=== PATIENT | male | born 2005 | race Caucasian/White ===

== ENCOUNTER 2024-04-14 14:34 | Emergency (ER) | payer OTHER, SELFPAY ==
[2024-04-14 14:41] VITALS: BP 134/79; PULSE 79; RESP 16; TEMP 37.1; O2SAT 100
--- NOTE | 2024-04-14 15:15 | ED.EAR ---
HPI - Ear Problem General Chief complaint: Ear Stated complaint: Ear bleeding History of Present Illness HPI Narrative: patient is a 18-year-old male, presents to [facility] with left ear canal bleeding after his mom attempted to remove cerumen from the left ear canal this morning. He denies any additional URI symptoms. he has not had diarrhea prior to today. He denies any additional complaints, his tetanus vaccination is reported up-to-date Related Data Allergies Allergy/AdvReac Type Severity Reaction Status Date / Time No Known Allergies Allergy Unverified 01/10/14 15:37 Review of Systems ENT: Comments: refer to HPI Exam Narrative: abrasion of the left ear canal is present, there is cerumen deep in the canal, there is no other traumatic injury appreciated, portion of the TM is visible is intact it does not appear infected. Plan to treat with Floxin otic drops, home cerumen removal instructions are provided for safe use in the future. PCP follow-up for ear check in 3 days stressed if symptoms are not resolving Const: General: healthy appearing and no acute distress Nutritional Appearance: well nourished Orientation/consciousness: patient oriented x3 Limitations: no limitations and altered mental status HENMT: Head: normal to inspection Ears: external ears normal ( patient's left EAC has an abrasion proximal to the opening. ) Face/Nose/Sinus: Normal external nose present Teeth and gingiva: dentition normal Throat: posterior oropharynx normal Other: There is cerumen deep in the canal, partially obstructing the view of the TM however the portion that is visible is intact right ear canal is unremarkable on exam Eyes: Pupils: Equal, round and reactive pupils present EOM: EOMs intact bilaterally Neck: Neck: normal visual inspection, no lymphadenopathy and no meningeal signs Resp: Effort & Inspection: normal respiratory effort Auscultation: clear to auscultation bilaterally Cardio: Rate: regular rate Rhythm: regular rhythm Skin: General skin exam: normal color Rashes: no rashes Neuro: General: patient oriented x3, moves all extremities, no meningeal signs, no focal motor deficits and CN's II-XI intact bilaterally Course Course Level of Care: Express Care Visit ([id number]) Vital Signs Vital signs: Vital Signs Temperature 37.1 C 04/14/24 14:41 Pulse Rate 79 04/14/24 14:41 Respiratory Rate 16 04/14/24 14:41 Blood Pressure 134/79 04/14/24 14:41 Pulse Oximetry 100 04/14/24 14:41 Oxygen Delivery Room Air 04/14/24 14:41 Temperature 37.1 C 04/14/24 14:41 Pulse Rate 79 04/14/24 14:41 Respiratory Rate 16 04/14/24 14:41 Blood Pressure 134/79 04/14/24 14:41 Pulse Oximetry 100 04/14/24 14:41 Oxygen Delivery Room Air 04/14/24 14:41 Medical Decision Making MDM Narrative Medical decision making narrative: Floxin otic Differential Diagnosis Differential Diagnosis: external ear canal abrasion, otitis media, cerumen impaction, otitis externa Vital Signs Vital Signs: Vital Signs Temperature 37.1 C 04/14/24 14:41 Pulse Rate 79 04/14/24 14:41 Respiratory Rate 16 04/14/24 14:41 Blood Pressure 134/79 04/14/24 14:41 Pulse Oximetry 100 04/14/24 14:41 Oxygen Delivery Room Air 04/14/24 14:41 Temperature 37.1 C 04/14/24 14:41 Pulse Rate 79 04/14/24 14:41 Respiratory Rate 16 04/14/24 14:41 Blood Pressure 134/79 04/14/24 14:41 Pulse Oximetry 100 04/14/24 14:41 Oxygen Delivery Room Air 04/14/24 14:41 Discharge Plan Discharge Clinical Impression: Abrasion of left ear canal Qualifiers: Encounter type: initial encounter Qualified Code(s): S00.412A - Abrasion of left ear, initial encounter Patient Disposition: Home, Self-Care Condition: Stable Instructions: Antibiotic Form, Earache (ED) Additional Instructions: use antibiotic ear drops as prescribed. Avoid inserting any objects, including Q
== END 2024-04-14 15:31 | disposition home or self-care (01) ==
PROVIDERS: Emergency Provider Nurse Practitioner Family
DX: S00.412A Abrasion of left ear, initial encounter (principal); X58.XXXA Exposure to other specified factors, initial encounter
CPT/HCPCS: 99203; G0463

== ENCOUNTER 2024-11-02 18:47 | Emergency (ER) | payer OTHER, SELFPAY ==
--- OUTSIDE RECORDS SUMMARY | 2024-11-02 18:50 | XMS_ITS | Data Portability ---
Author Organization [facility] [place] [facility] Address [address] [place] [address] Care Team Providers Care Electrophysiology Technician Name Role Phone RENITANANCYRHINA CRUZ Primary Care Provider Assessment No assessment recorded. Plan of Treatment Reminders Order Date Submit Date Provider Last Modified By Organization Details Last Modified Time Details Appointments None record ed. Lab HIV 1+2 AB + HIV 1 p24 Ag, qualit ative immuno assay, serum 2019 020 [facility], [address] [place] [address], [place], [address], 0 12:09:52 RPR (rapid plasma reagin ), serum 2019 020 [facility], [address] [place] [address] 2, [place], [address], 0 12:09:51 hsv (1+2) igg Ab, serum 2019 020 [facility], [address] [place] [address] 2, [place], [address], 0 12:09:52 HBsAg (hepat itis B surfac e Ag), EIA, serum 2019 020 [facility], [address] [place] [address] 2, [place], [address], 0 12:09:53 hepati tis C Ab, signal -to-cu toff, serum or plasma 2019 020 [facility], [address] [place] [address], [place], [address], 0 12:09:51 CT + NG RNA, PCR, unspec ified specim en 2019 020 [facility], [address] [place] [address] 2, [place], [address], 0 12:09:52 strept ococcu s group A Ag screen 2021 022 [facility] ([facility]) Registration/ Lab, [address] [place], [address], 2 16:00:17 strept ococcu s group A Ag screen 2021 022 [facility], [address] [place] [address] 2, [place], [address], 2 15:47:00 SARS CoV 2 RNA (COVID -19), QL, 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 Thank you. 2021 022 gerson De La Cruz MD, [address] [facility], [facility] - Timothy D, [facility] [place], [address], 2 08:56:42 Procedures None record ed. Surgeries None record ed. Imaging None record ed. Medication Orders Debrox 6.5 % ear drops 2019 020 [facility], [address] [facility], [place], [address], 2 15:28:31 albute rol sulfat e HFA 90 mcg/ac tuatio n aeroso l inhale r 2019 020 [facility], [address] [place] [address], [address], 0 12:12:13 doxycy galindo hyclat e 100 mg tablet 2021 022 [facility], [address] [place] [address], [address], 2 16:10:27 clinda mycin 1 % lotion 2021 022 [facility], [address] [place] [address], [address], 2 16:10:25 tretin oin 0.05 % topica l cream 2021 022 [facility], [address] [place] [address], [address], 2 16:10:26 Debrox 6.5 % ear drops 2021 022 [facility], [address] [place] [address], [address], 2 15:45:15 Patient TargetsNo targets recorded. Patient Instructions Encounter Date Encounter Id Patient Instructions Last Modified By Organization Details Last Modified Time 09/06/2020 [id number] Learning About H ow to Make Healthy Changes in Your Child's Diet avallala Not available 09/06/2020 11:46:59 Considering More Physical Activity for Your Child avallala Not available 09/06/2020 11:46:59 09/30/2021 [id number] Learning About H ow to Make Healthy Changes in Your Child's Diet avallala Not available 09/30/2021 17:59:59 Considering More Physical Activity for Your Child avallala Not available 09/30/2021 17:59:59 anticipatory guidance 16-17 years avallala Not available 09/30/2021 17:58:47 10/22/2021 [id number] sore throat in teens: care instructions avallala Not available 10/22/2021 15:46:45 12/16/2021 [id number] possible appendicitis in children: care instructions Not available 12/16/2021 15:09:26 Told mom to go t o [facility]. Mom expressed understanding My nurse Amalia Aguirre, RN called [facility] to give report. Not available 12/16/2021 15:09:26 Reason for Referral [facility] Referral for A cne Please call mom to set up appointment, Malia Amaral @ [phone]. Thank you. Referring Physician: Rhina Yoder, Pediatric Medicine, Encounter Date: 09/30/2021 Problems Name Problem SNOMED Code Status Onset Date Resolution Date Notes Provider Name and Address Organization Details Recorded Time Infestation by Sarcoptes scabiei ani hominis [id number] Completed 04/27/2019 Viraj kaba [place] - [place] 9 12:30:41 Migraine without aura 75810382 Active JONEL Miguel, [place] - [facility] 6 10:34:33 Feeling angry 68686549 Completed 04/27/2019 Viraj kaba [place] - [facility] 9 12:30:44 Mild intermitten t asthma 281838075 Active JONEL [place], [place] - [facility] 6 10:34:33 Severe myopia 44358584 Active JONEL Miguel, [place] - [facility] 6 10:34:33 Problem Notes None recorded. Procedures Surgical History Date Name Laterality Status Provider Name and Address Organization Details Recorded Time 4 Circumcision completed Katharina Pereira [place] - [place] 09/14/2015 15:22:11 Imaging Results None recorded. Procedure Notes None recorded. Medical Equipment None Reported. Allergies No known drug allergies Medications Name Sig Start Date Stop Date Status Note LastModified by Organization Details LastModified Time azithromyci n 250 mg tablet Take 2 tablets on day 1, then 1 tablet on days 2-5. 04/27 completed Not Available Not Available Not Available sumatriptan 25 mg tablet Take 1 tablet at onset of headache, if no improveme nt, can take another tablet 2 hours later. Do not take more than 3 doses/wk. 09/30 completed Not Available Not Available Not Available Debrox 6.5 % ear drops INSTILL 4 DROPS INTO AFFECTED EAR(S) TWICE DAILY FOR 4 DAYS active Not Available Not Available No t Available permethrin 5 % topical cream Apply by topical route to skin from neck down to toes hs, shower after 8-10hr, repeat in 1 wk. 11/27 completed Not Available Not Available Not Available tretinoin 0.05 % topical cream APPLY TO THE AFFECTED AREAS OF BODY AND FACE BY TOPICAL ROUTE ONCE DAILY AT BEDTIME, FIRST START WITH PEA SIZED AMOUNT TO AREA AND USE EVERY OTHER DAY FOR 1 WEEK, THEN EVERY DAY AT BEDTIME active Not Available Not Available No t Available Zantac 75 mg tablet Take 1 tablet twice a day by oral route for 30 days. 04/27 completed Not Available Not Available Not Available triamcinolo ne acetonide 0.025 % topical cream Apply by topical route.to red rash 2x daily for 7ds then every other day for 2wk, stop when rash is flat 11/27 completed Not Available Not Available Not Available amitriptyli ne 10 mg tablet 09/30 completed Not Available Not Available Not Available oseltamivir 75 mg capsule Take 1 capsule twice a day by oral route for 5 days. 04/27 completed Not Available Not Available Not Available ibuprofen 400 mg tablet 04/27 completed Not Available Not Available Not Available albuterol sulfate HFA 90 mcg/actuati on aerosol inhaler Inhale 2 puffs every 4 hours by inhalatio n route. 2019 active Not Available Not Available Not Avai lable doxycycline hyclate 100 mg tablet TAKE 1 TABLET BY MOUTH TWICE DAILY active Not Available Not Available No t Available amoxicillin 500 mg-potassiu m clavulanate 125 mg tablet active Not Available Not Available Not Available clindamycin 1 % lotion APPLY A THIN LAYER TO THE AFFECTED AREA(S) OF BODY AND FACE ONCE A DAY IN THE MORNING active Not Available Not Available No t Available Vitals Date Recorded Body height Body mass index (BMI) Percentile per age and sex Body mass index (BMI) Body weight Heart rate Respiratory rate Body temperature Systolic blood pressure Diastolic blood pressure Provider Name and Address Organization Details Last Updated DateTime 0 181.61 cm 51 % 20.6 kg/m2 16622.0 6 g 80 /min 20 /min 98.1 [degF] 108 mm[Hg] 64 mm[Hg] Mary Ellen baca MA [facility] 0 11:40:28 Date Recorded Heart rate Respiratory rate Body temperature Body height Body mass index (BMI) Percentile per age and sex Body mass index (BMI) Body weight Systolic blood pressure Diastolic blood pressure Provider Name and Address Organization Details Last Updated DateTime 2 76 /min 16 /min 98.5 [degF] 181.61 cm 21 % 19.3 kg/m2 62363.7 3 g 112 mm[Hg] 64 mm[Hg] Mray Ellen baca MA [facility] 2 15:31:44 Date Recorded Heart rate Respiratory rate Body temperature Body height Body mass index (BMI) Body mass index (BMI) Percentile per age and sex Body weight Systolic blood pressure Diastolic blood pressure Provider Name and Address Organization Details Last Updated DateTime 2 80 /min 16 /min 98.4 [degF] 181.61 cm 19.3 kg/m2 20 % 13519.9 3 g 112 mm[Hg] 64 mm[Hg] Mary Ellen baca MA [facility] 2 14:45:23 Date Recorded Heart rate Respiratory rate Body temperature Body height Body mass index (BMI) Body mass index (BMI) Percentile per age and sex Body weight Systolic blood pressure Diastolic blood pressure Provider Name and Address Organization Details Last Updated DateTime 2 80 /min 16 /min 98.2 [degF] 181.61 cm 18.1 kg/m2 7 % 88866.4 g 110 mm[Hg] 62 mm[Hg] Mary Ellen baca MA [facility] 2 14:52:23 Social History Question Answer Notes LastModified by Organizat ion Details LastModified Time Tobacco Smoking Status Never Smoker Katharina Pereira MA [facility], [facility] 09/13/2014 11:23:06 Do You Wear A Helmet When Biking? No Information not available 09/13/2014 Are You Or Have You Been Involved With Bullying? Yes [email or web address] Information not available 09/13/2014 What Is Your Level Of Caffeine Consumption? Moderate [email or web address] Information not available 09/13/2014 What Type Of [facility] Assisted Living Do You Use? None Information not available 09/30/2021 What Type Of Diet Are You Following? REGULAR Not Good On Veggies [email or web address] Information not available 09/13/2014 What Is The Highest Grade Or Level Of School You Have Completed Or The Highest Degree You Have Received? [id number] [email or web address] Information not available 09/30/2021 Have There Been Any Changes To Your Family Or Social Situation? Yes Brother Recently From Brain Cancer [email or web address] Information not available 04/17/2016 What Is The Fluoride Status Of Your Home? Fluoridated Information not available 11/27/2016 Are There Any Guns Present In Your Home? No [email or web address] Information not available 09/13/2014 What Is Your Home Situation? Mother Mom, Stepdad, And Sister [email or web address] Information not available 09/13/2014 Do You Use Insect Repellent Routinely? Yes Information not available 09/13/2014 Car Seat Type Or Seat Belt? Seat Belt [email or web address] Information not available 09/13/2014 Parent Involvement? Both Parents Involved Dad [email or web address] Information not available 09/13/2014 Riding In Car Front Seat? Yes Most Of Time In Back [email or web address] Information not available 09/13/2014 What Was The Date Of Your Most Recent Tobacco Screening? 11/11/2018 Information not available 04/21/2019 What Is Your Parents' Marital Status? Unmarried [email or web address] Information not available 09/13/2014 What Is The Name Of Your School? [email or web address] [id number] Information not available 09/30/2021 Do You Have Any Siblings? 1 Brother, 1/2 Sister [email or web address] Information not available 09/13/2014 Do You Have Smoke And Carbon Monoxide Detectors In Your Home? Yes [email or web address] Information not available 09/13/2014 Are You Passively Exposed To Smoke? No [email or web address] Information not available 09/13/2014 What Types Of Sporting Activities Do You Participate In? Football Information not available 09/06/2020 Do You Use Sunscreen Routinely? Yes [email or web address] Information not available 09/13/2014 Are You Currently In School? Yes Information not available 09/30/2021 Sex: Male Functional Status Question Answer Note LastModified by Organization D etails LastModified Time What is your exercise level? Moderate [email or web address] Information not available 09/13/2014 Mental Status None recorded. Family History Relationship Description Onset Age of this Age Resolved Age Notes LastModified by Organization Details LastModified Time Maternal Grandfather Hypertensive disorder [email or web address] Not available 08/28 15:22:11 Brother Family history of malignant neoplasm 10 Not available 10/2016 15:33:37 Medical History Condition Response Blood Diseases N Depression N Premature N Anxiety Disorder N Muscle, Joint, or Bone Problems N Vision or Eye Problems N Cancer N Headaches N Ear or Hearing Problems N Skin Problems N Constipation N Asthma Y Allergies N Chicken Pox N Autism Spectrum Disorder (ASD) N Developmental or Behavioral Disorders N Head Injury/Concussion N ADHD N Bladder or Kidney Problems N Thyroid Problems N Anemia N Diabetes N Bedwetting N Heart Problems/Murmur N Seizures/Epilepsy N Immunizations Vaccine Type Date Status Note Provider Nam e and Address Organization Details Recorded Time influenza, unspecified formulation 0 completed Not Available [facility] 12/16/2021 21:47:42 influenza, unspecified formulation 1 completed [facility] Available [facility] 12/16/2021 21:47:43 MMR 5 completed Not Available [facility] 12/16/2021 21:47:43 DTaP 6 completed Not Available [facility] 12/16/2021 21:47:42 influenza, unspecified formulation 5 completed Not Available [facility] 12/16/2021 21:47:43 pneumococcal conjugate PCV 7 5 completed Not Available [facility] 12/16/2021 21:47:43 Hep B, adolescent or pediatric 5 completed Not Available [facility] 12/16/2021 21:47:42 Hep B, adolescent or pediatric 5 completed Not Available [facility] 12/16/2021 21:47:43 pneumococcal conjugate PCV 7 5 completed Not Available [facility] 12/16/2021 21:47:43 influenza, unspecified formulation 8 completed Not Available [facility] 12/16/2021 21:47:42 IPV 9 completed Not Available [facility] 12/16/2021 21:47:42 influenza, unspecified formulation 6 completed Not Available [facility] 12/16/2021 21:47:43 influenza, unspecified formulation 5 completed Not Available [facility] 12/16/2021 21:47:42 influenza, unspecified formulation 6 completed Not Available [facility] 12/16/2021 21:47:43 IPV 5 completed Not Available [facility] 12/16/2021 21:47:42 pneumococcal conjugate PCV 7 6 completed Not Available [facility] 12/16/2021 21:47:42 varicella 8 completed Not Available [facility] 12/16/2021 21:47:42 Hib, unspecified formulation 5 completed Not Available [facility] 12/16/2021 21:47:43 influenza, unspecified formulation 9 completed Not Available [facility] 12/16/2021 21:47:43 influenza, unspecified formulation 3 completed Not Available [facility] 12/16/2021 21:47:42 Hib, unspecified formulation 5 completed Not Available [facility] 12/16/2021 21:47:43 MMR 8 completed Not Available [facility] 12/16/2021 21:47:43 Hep B, adolescent or pediatric 4 completed Not Available [facility] 12/16/2021 21:47:43 IPV 5 completed Not Available [facility] 12/16/2021 21:47:42 varicella 5 completed Not Available [facility] 12/16/2021 21:47:42 influenza, unspecified formulation 7 completed Not Available [facility] 12/16/2021 21:47:42 DTaP 5 completed [facility] 12/16/2021 21:47:43 Hep B, adolescent or pediatric 5 completed Not Available [facility] 12/16/2021 21:47:42 Hep A, ped/adol, 2 dose 6 completed Not Available [facility] 12/16/2021 21:47:43 Hib, unspecified formulation 5 completed Not Available [facility] 12/16/2021 21:47:42 Hib, unspecified formulation 6 completed Not Available [facility] 12/16/2021 21:47:42 IPV 5 completed Not Available [facility] 12/16/2021 21:47:42 DTaP 9 completed Not Available [facility] 12/16/2021 21:47:43 DTaP 5 completed Not Available [facility] 12/16/2021 21:47:43 influenza, unspecified formulation 2 completed Not Available [facility] 12/16/2021 21:47:42 Hep A, ped/adol, 2 dose 6 completed Not Available [facility] 12/16/2021 21:47:42 pneumococcal conjugate PCV 7 5 completed Not Available [facility] 12/16/2021 21:47:42 DTaP 5 completed Not Available [facility] 12/16/2021 21:47:42 Influenza, split virus, quadrivalent, PF 7 completed Not Available [facility] 10/15/2019 02:49:55 Influenza, split virus, quadrivalent, PF 9 completed Not Available [facility] 10/15/2019 02:41:58 HPV9 9 completed Not Available [facility] 10/15/2019 02:37:40 Influenza, split virus, quadrivalent, PF 9 completed Not Available [facility] 10/15/2019 02:38:14 HPV9 0 completed Rhina Yoder MD Attn: Accounting,[address] [facility], [place], [address], [facility] 09/06/2020 13:44:25 meningococcal MCV4P 0 completed Rhina Yoder MD Attn: Accounting,[address] [facility], [place], [address], [facility] - [facility] 09/06/2020 13:44:25 meningococcal B, OMV 0 completed Rhina Yoder MD Attn: Accounting,[address] [facility], [place], [address], [facility] - [facility] 09/06/2020 13:44:25 Influenza, split virus, quadrivalent, PF 0 completed Rhina Yoder MD Attn: Accounting,[address] [facility], [place], [address], [facility] - [facility] 09/06/2020 13:44:25 meningococcal B, OMV 2 completed Mary Ellen Hull MA [facility], [place] - SI 09/30/2021 16:11:01 Influenza, split virus, trivalent, preservative 4 completed Not Available [facility] 10/15/2019 02:41:29 Tdap 4 completed Not Available [facility] 10/15/2019 02:43:43 Meningococcal MCV4O 5 completed Not Available [facility] 10/15/2019 02:31:36 Influenza, split virus, quadrivalent, preservative 5 completed Not Available [facility] 10/15/2019 02:39:16 Past Encounters Encounter ID Performer Location Encounter Start Date Encounter Closed Date Diagnosis/Indication Diagnosis SNOMED-CT Code Diagnosis ICD10 Code Diagnosis Note [id number] [facility]) [address] [place] [address] 09/13/2014 10:49:28 09/13/2014 12:11:05 Well child [id number] Feeling angry [id number] d iscuss about emery stormmom declines at this point, advise planners to help all children to follow same household rules limit screen time to 1 hr/d, no electronic s in bedroom. Mild inter mittent asthma 995727444 instruct how to use med, keep diary of using med Severe myopia 77143231 n eed glasses [id number] Silas Platt [facility] ([facility]) [address] [place] [address] 09/14/2015 14:36:59 09/14/2015 18:17:43 Well child 161360393 Z00.129 active life style, sleep at 9 pm, no videogame or TV in [place], wakes up early, no naps, exercise 30 min/d, help with chores, balanced diet with milk 15 oz/d, no soda, tea,water 2 liters/d, good dental hygiene, visit dentist q 6-12m, study daily. Mild inter mittent asthma 024074957 J45.20 instruct how to use med, keep diary of using med Severe myopia 72779876 H 52.13 need glasses, rt 20/200, lt 20/60, with glasses 20/20, cover better eye 1 hr/d Infestatio n by Sarcoptes scabiei ani hominis 623621442 B86 whole family rx same day, avoid scratching , Benadryl by mouth prn for itching, all clothing, towels and bedding that were use 2 ds prior to rx should be washed in hot water, or bagged until can wash, scabies cannot survive >3d outside body. Migraine without aura 56 749507 G43.009 increase water to 6 cups/d, no sweet drink, exercise 1 hr daily, sleep 10 hr,eat 3 meals, 2 snacks, no caffeine, diary of pain and med use [id number] LAMONT Chasehalto (Peds) [address] [facility] [place] [address] 04/17/2016 09:45:29 04/17/2016 13:33:10 Well child 432944684 Z00.129 discussed routine child welfare social worker discussed safety and school performanc e discussed healthy weight with diet and exercise. [id number] MD Diaz [facility] (Peds) [address] [facility] [place] [address] 11/27/2016 15:09:36 12/02/2016 11:49:13 Well child 340528143 Z00.129 Growth wnl. Anticipato ry guidance given. Discussed PHQ-9 results. Pt. denies feeling depressed and has no suicidal ideation. Acute bronchitis 7498376 [address] zithromax, f/u in 1 week if no improvemen t. [id number] [facility] [address] [place] [address] 04/03/2017 11:24:42 04/06/2017 10:43:52 Gastroesophageal reflux disease without esophagitis 608390914 K21.[address] on trial of zantac. F/u in 1 month. Abdominal pain 88671055 R10.9 DDx includes GERD vs. constipati on. Told to keep a journal, f/u in 1 month. [id number] MD Diaz [facility] (Peds) [address] [place] [address] 05/07/2017 14:20:11 05/11/2017 11:39:41 Abdominal pain 18840057 R10.9 Resolved. [id number] MD Diaz [facility] (Peds) [address] [place] [address] 09/08/2017 13:28:54 09/09/2017 17:49:34 Impacted cerumen in left ear 4904950556 295771 H61.22 Unable to visualize TM due to cerumen impaction and was unable to remove with lighted currette. Will prescribe debrox drops. If no improvemen t, RTC in 1-2 weeks for ear flush. Administra tion of influenza vaccine 78155333 Z23 [id number] MD Jumana Howardhalto (Peds) [address] [place] [address] 11/02/2018 11:01:51 11/03/2018 12:49:02 Pain in throat 192102591 R07.0 Rapid strep negative. Likely viral etiology. Will send for throat culture. Recommend supportive care. Reassured pt. that swelling in neck he felt appears to be normal cervical lymph nodes. Notify if pt. develops pain and rapid enlargemen t of lymph nodes. Administra tion of influenza vaccine 47966721 Z23 [id number] MD Diaz [facility] (Peds) [address] [place] [address] 11/11/2018 15:39:31 11/12/2018 12:21:04 Fever 099615386 R50.9 Rapid strep negative. Positve for influenza A. Start tamiflu. Encourage fluids and rest. Influenza caused by Influenza A virus 065841478 J09.X2 Tested positive for Inf. A. Will start on tamiflu since within 48 hours of sx. To ER if develops signs of pneumonia. [id number] Viraj Perales (Peds) [address] [place] [address] 04/27/2019 12:11:17 04/27/2019 17:33:59 Well child 768492573 Z00.129 Diet education 90900196 Z71.3 Exercises education, guidance, and counseling 564437059 Z71.82 [id number] MD Diaz [facility] (Peds) [address] [place] [address] 07/12/2019 15:39:41 07/13/2019 15:40:09 Chronic headache disorder 461330836 G44.89 Ddx includes migraine headaches without aura. Will place on sumatripta n. Advised eliminatin g caffeinate d drinks. Get at least 6-8 glasses of water daily, and get at least 8 hours sleep. Keep a headache journal. Advised not to take NSAIDs more than 3 doses/wk. Due to pt's chronicity of headaches and strong FMH for migraines, will refer to neuro for further evaluation . Administra tion of influenza vaccine 30101961 Z23 [id number] KRISTEL Rueda-SHERI [facility] [address] [place] [address] 05/31/2020 12:15:57 06/05/2020 15:39:58 Viral screening 027969571 Z11.59 Viral syndrome 384458295 B34.9 Suspected COVID-19 56945 4004 Z03.561 [id number] MD Diaz [facility] (Peds) [address] [place] [address] 09/06/2020 11:26:49 09/07/2020 10:17:32 Well child visit 648529891 Z00.129 BMI at 51%, growth wnl. Immunizati ons provided. Anti Diet education 81222647 Z71.3 Reviewed healthy eating habits. Eliminate soda. Exercises education, guidance, and counseling 277546169 Z71.82 Pt. plays football. Mild inter mittent asthma 369585584 J45.20 Symptoms are currently under control. Reviewed asthma action plan. Provided albuterol refill. Migraine with aura 02157 06 G43.109 Pt. seen by [facility] neuro, was started on Elavil. Headaches have improved. Pt. says he stopped taking 3 weeks ago. Recommende d f/u with neurology. Venereal d isease screening 150348309 Z11.3 Pt. has been sexually active in the past. Will complete screening. Impacted c erumen of bilateral ears [id number] H61.23 Removed a large amt. of impacted cerumen from both ears today. Pt. reported he could hear well, especially from R ear after removal. Reviewed ear care including not to use q-tips. Will provide Debrox drops. Generalize d anxiety disorder [id number] F41.1 Pt. scored a 7 on RASTA screen today which is a mild level. Discussed coping strategies such as meditation and improving lifestyle and sleep habits. Recommende d counseling . Notify if anxiety increases. [id number] [facility] [address] [place] [address] 09/30/2021 15:11:12 10/01/2021 10:11:06 Well child visit [id number] Z00.129 BMI at 21%, growth wnl. Second Bexsero given. Pt. declined flu and Covid vaccines. Immunizati ons provided. Anticipato ry guidance provided. Acne [id number] L70.9 Moderate to severe acne. Will start on po doxycyclin e, topical clindamyci n and tretinoin qhs. F/u in one month. Will also place a referral to dermatolog y for evaluation for possible Accutane treatement Diet education [id number] Z71.3 Reviewed healthy eating habits including eating 5 servings fruits and vegetables , drinking 8 glasses of water daily, lean sources of protein, and healthy fats such as nuts and avocado. Avoid processed foods and sugary drinks such as sodas and juices. Exercises education, guidance, and counseling [id number] Z71.82 Pt. plays football. Recommend at least 20 minutes of daily exercise at least 3-4 times/wk. [id number] MD Diaz [facility] (Peds) [address] [place] [address] 10/22/2021 10:59:17 10/23/2021 07:54:34 Suspected COVID-19 [id number] Z20.822 Pt. exposed to sibling who recently tested positive and now pt. is symptomati c. Will order Covid PCR test. Pain in throat [id number] R07.0 Will order testing for strep. Recommend supportive care. [id number] MD [facility] (Peds) [address] [place] [address] 11/07/2021 14:33:49 11/08/2021 08:41:23 Acne [id number] L70.9 Moderate to severe acne, appears to have some mild improvemen t since visit on 09/30/21. Cont. doxycyline , topical clindamyci n and tretinoin qhs. Pt. is c/o irritation with topical meds. Recommende d that pt. use the tretinoin every other night to every 2 nd night. Also recommende d that pt moisturize face twice a day. Samples of Ceravae acne wash, moisturize r with spf 30 provided. Mom is in process of scheduling a dermatolog y appt. F/u in 2 months if not seen by dermatolog y by then. Impacted c erumen in left ear [id number] H61.22 Unable to visualize TM due to cerumen impaction and was unable to remove with lighted currette. Will prescribe debrox drops. If no improvemen t, RTC in 1-2 weeks for ear flush. [id number] Viraj Perales (Peds) [address] [place] [address] 12/16/2021 14:40:58 12/17/2021 07:46:36 Right lower quadrant pain [id number] R10.31 w/ vomiting for 8 days and 10 pound wt loss. Told mom to go to [facility]. Mom expressed understand ing My nurse Amalia Aguirre, RN called [facility] to give report. Health Concerns Section Related Observation LastModified by Organization Detai ls LastModified Time None Recorded Concern Status LastModified by Organization Details LastModified Time None Recorded Advance Directives Directive None Recorded Payers Encounter Date Sequence Insurance Name Policy Number Policy Vasquez Covered Member ID Vasquez Member ID Guarantor Name 09/06/2020 1 [facility] [id number] Sam A Amaral [id number] Sam Amaral 09/30/2021 1 [facility] [id number] Sam A Amaral [id number] Sam Amaral 10/22/2021 1 [facility] [id number] Sam A Amaral [id number] Sam Amaral 11/07/2021 1 [facility] [id number] Sam A Amaral [id number] Sam Amaral 12/16/2021 1 [facility] [id number] Sam A Amaral [id number] Sam Amaral Notes Date Note Type Note Provider Name and Address Organization Details Recorded Time 09/06/2020 text/html The pt is a 15 y o WM brought in by mom for WC. Pt. was seen by peds. neurology for headaches 07/2019 at [facility]. Pt. was diagnosed with migraines with aura. Pt. placed on Elavil, and he reports that headaches have improved. He says he stopped taking the Elavil 3 weeks ago. Peds. neuro recommended a psychology consults at that time for excessive anxiety. Stressors include pt. having a brother who from a brain tumor in 2017. Parents are . Pt. says he still suffers from anxiety. He reports that it does not interfere with his daily activities. He tends to get more anxious at Dad's place, but says it is not related to Dad. He says he can't explain why he gets anxious. Pt. has poor sleeping habits and does not sleep well. Pt. has not see a psychologist and is not receiving any counseling. No f/u with Neuro since 07/2019.Pt. has a history of mild intermittent asthma, triggers include exercise. Uses albuterol < 2 times/wk and does not have any nocturnal cough. Last used albuterol inhaler several months ago. Pt. is currently in remote learning, had been in in person schooling for early part of the school year. Pt. is doing poorly in school now. He is not motivated per mom. Pt. had played football in the past, no sports at school this year due to the coronavirus pandemic. Pt. denies feeling depressed.Pt. reports that he can't hear well from the right ear. Rhina Yoder MD Attn: Accounting, [address] [place], [address], [facility] 09/06/2020 14:08:16 09/30/2021 text/html This is a 16 y/o male here with mom for a well child visit and sports physical. Pt. had a h/o mild intermittent asthma as a child which he has outgrown. He reports that he has not used an albuterol inhaler for several years. He denies having any exercise induced asthma sx. with sports. No chest pain with sports.He played football and basketball last year. Not planning to play any winter or spring sports at this time.Pt. has concerns about acne. Pt. has been dealing with acne for the last 3-4 years. Pt. does not have a specific skincare routine. He has tried several OTC products such as benzyl peroxide pads. No improvement seen and acne has worsened over the last 1 year. Acne runs on Dad's side. Acne is located on face, chest and back. Pt. does pick and pop lesions. Rhina Yoder MD Attn: Accounting, [address] [place], [address], [facility] 09/30/2021 18:00:51 10/22/2021 text/html This encounter w as completed by phone with the patient's mother due to the coronavirus pandemic.The patient is a 16 y/o male with a 1.5 wk loss of taste and smell, fatigue, and slight headaches. Pt. also c/o sorethroat. Pt's sibling tested positive for Covid on 10/07/21. Pt. was tested the same day, and he tested negative. No nausea, vomiting, or diarrhea. No fevers. Normal oral intake, urine output, and activity level.Pt's parents have received vaccine. Rhina Yoder MD Attn: Accounting, [address] [place], [address], [facility] 11/07/2021 14:53:35 11/07/2021 text/html This is a 16 y/o male her for f/u on acne. Pt. has been dealing with acne for the last 3-4 years. Pt. does not have a specific skincare routine. He had tried several OTC products such as benzyl peroxide pads. No improvement seen and acne has worsened over the last 1 year. Acne runs on Dad's side. Acne is located on face, chest and back. Pt. does pick and pop lesions.Pt. was seen on 09/30/21 and was prescribed doxycycline 100 mg BID, clindamycin lotion 1%, and tretinoin .05 %. Since acne was noted to be severe and pt. had extensive scarring, a dermatology referral was placed as well.Pt states he is trying to use the lotions and creams for his acne but it tends to flare the acne up more and it marie. Mom feels that the acne has improved by 10 %. Pt says he uses Dove bar soap to wash his face twice a day. He has does not use daily moisturizer. Pt. also has acne on chest and back. Mom says she has to call and schedule an appointment for dermatology.Mom states pt was supposed to have his left ear checked last time but never did. Mom says he has a h/o a lot of hard wax buildup in his left ear. Pt. denies having any hearing issue. Rhina Yoder MD Attn: Accounting[address] [place], [address], [facility] 11/07/2021 15:45:53 12/16/2021 text/html The pt is a 16 y o WM brought in by mom for RLQ pain and vomiting for 8 days. He has NB/NB vomiting 3-4 times a day. No diarrhea. He has lost 8.5 pounds from his last visit on 11/07/21. He has no appetite but is forcing himself to eat. RLQ pain gets worse through the day. No fever. No cough. Normal UOP. Viraj kaba, [facility] 12/16/2021 15:14:30
--- OUTSIDE RECORDS SUMMARY | 2024-11-02 18:50 | XMS_ITS | Clinical Summary ---
Author Organization [facility] Address [address] [place] [address] Phone Care Team Providers Care Side Seam Tender Name Role Phone Rhina Yoder MD Primary Care Provider [phone] Social History Tobacco Use Types Packs/Day Years Used Date Smoking Tobacco: Never Assessed Sex and Gender Information Value Date Recorded Sex Assigned at Not on file Legal Sex Male 9:11 PM CDT Gender Identity Not on file Sexual Orientation Not on file Plan of Treatment Health Maintenance Due Date Last Done Comments Hepatitis C Virus (HCV) Screening 2004 Influenza Immunization (#1) 05/29/202408/28, 07/12/2019, 11/02/2018, Additional history exists SARS-COV-2 Immunization ( season) 2024 Respiratory Syncytial Virus (RSV) Immunization (Adult) (1 - 1-dose 75+ series) 2079 Hepatitis B Immunization Completed 005, 01/02/2005, 2004, Additional history exists Pneumococcal Immunization Combined Aged Out 12/08/2005, 2005, 03/19/2005, Additional history exists No longer eligible based on patient's age to complete this topic Hepatitis A Immunization Discontinued 09/04/2006, 04/2006 Measles Mumps Rubella (MMR) Immunization Discontinued 09/06/2008, 09/11/2005 Varicella Immunization Discontinued 09/06/2008, 2004 Polio (IPV) Immunization Discontinued 009, 03/19/2005, 01/02/2005, Additional history exists DTaP/Tdap/Td Immunization Discontinued 2013, 04/11/2009, 12/08/2005, Additional history exists TdaP Immunization Completed 09/13/2014 Human Papillomavirus (HPV) Immunization Completed 09/06/2020, 04/27/2019 Meningococcal Immunization (ACWY) Completed 09/06/2020, 09/14/2015 Meningococcal B Immunization Completed 09/30/2021, 09/06/2020 Rotavirus Immunization Aged Out No lo nger eligible based on patient's age to complete this topic Care Teams Side Seam Tender Relationship Specialty Start Date End Date Rhina Yoder MD [address] [place] [address] PCP - General Pediatrics 05/30/21
[2024-11-02 19:04] VITALS: BP 124/70; PULSE 94; RESP 18; TEMP 37.2; O2SAT 100
--- NOTE | 2024-11-02 20:40 | ED_ITS ---
HPI - General Adult General Chief complaint: Nausea/Vomiting/Diarrhea Stated complaint: Nausea Time Seen by Provider: 11/02/24 20:30 Source: patient, RN notes reviewed and old records reviewed Mode of arrival: ambulatory Limitations: no limitations History of Present Illness HPI narrative: 19 year old male who presents to [facility] care with complaints of getting nauseated at work today and had to leave work. Patient reports that he has no fevers, chills or sweats and needs note to return to work tomorrow. Patient reports that he thinks he got overheated while working. Patient reports that he has had no vomiting or diarrhea or any know chills or body aches. MD complaint: nausea today at work needs note to return Onset (ago): hour(s) (today at work) Severity: mild Treatments prior to arrival: none Related Data Home Medications ?Medication ?Instructions ?Recorded ?Confirmed ?Last Taken ?Type No Home Medications 11/02/24 11/02/24 Unknown History Allergies Allergy/AdvReac Type Severity Reaction Status Date / Time No Known Allergies Allergy Unverified 11/02/24 19:31 Review of Systems Review of Systems: CONSTITUTIONAL: Denies fever, chills, or sweats. EYES: Denies visual changes, redness, or discharge. ENT: Denies rhinorrhea, congestion, sore throat, or otalgia. CARDIOVASCULAR: Denies chest pain, palpitations, or edema. RESPIRATORY: Denies cough or dyspnea. GASTROINTESTINAL: Denies abdominal pain, episode of nausea earlier today denies any present nausea, vomiting, or diarrhea. GENITOURINARY: Denies dysuria or hematuria. SKIN: Denies rash or itching. MUSCULOSKELETAL: Denies back pain, joint pain, or myalgia. NEUROLOGIC: Denies headache, numbness, or weakness.reports no dizziness PSYCHIATRIC: Denies anxiety or depression. All systems reviewed & are unremarkable except as noted in HPI and below PMFSH Comments At time of signature, agree with nursing past medical, surgical, social and family history. There is no relevant family history pertinent to the presenting complaint Exam Narrative: GENERAL: Well-appearing, well-nourished, and in no acute distress. HEAD: Normocephalic, atraumatic. EYES: PERRLA and EOMI. ENT: Nares clear, no rhinorrhea or epistaxis. Mucous membranes moist. NECK: Supple.no lymphadenopathy CHEST: Clear to auscultation. No respiratory distress.no cough noted SAO2 100% on room air HEART: Regular rate and rhythm. No murmur heard. Normal peripheral pulses. ABDOMEN: Soft, nontender, No McBurney point tenderness, nondistended, normal active bowel sounds. EXTREMITIES: Normal range of motion. No edema. SKIN: Warm, dry, no rash. NEURO: No focal deficits. Alert and oriented x3. Course Course Emergency Course: Patient is aware of diagnosis, understands and agrees to treatment plan.? Anticipatory guidance given.? Patient agrees to follow-up as directed and is aware of reasons to seek care at the emergency department. Portions of this record may have been created with voice recognition software Level of Care: Express Care Visit Vital Signs Vital signs: Vital Signs Temperature 37.2 C 11/02/24 19:04 Pulse Rate 94 11/02/24 19:04 Respiratory Rate 18 11/02/24 19:04 Blood Pressure 124/70 11/02/24 19:04 Pulse Oximetry 100 11/02/24 19:04 Oxygen Delivery Room Air 11/02/24 19:04 Temperature 37.2 C 11/02/24 19:04 Pulse Rate 94 11/02/24 19:04 Respiratory Rate 18 11/02/24 19:04 Blood Pressure 124/70 11/02/24 19:04 Pulse Oximetry 100 11/02/24 19:04 Oxygen Delivery Room Air 11/02/24 19:04 Reviewed Medical Decision Making MDM Narrative Medical decision making narrative: Exam findings and imaging show no acute concerns or changes; patient is non- toxic appearing and is in no distress.? Patient is appropriate for outpatient treatment and follow-up Differential Diagnosis Differential Diagnosis: nausea with no vomiting or diarrhea, GI upset, gastritis,viral infection Medical Records Medical records reviewed: Yes I reviewed the external patient's medical records. Vital Signs Vital Signs: Vital Signs Temperature 37.2 C 11/02/24 19:04 Pulse Rate 94 11/02/24 19:04 Respiratory Rate 18 11/02/24 19:04 Blood Pressure 124/70 11/02/24 19:04 Pulse Oximetry 100 11/02/24 19:04 Oxygen Delivery Room Air 11/02/24 19:04 Temperature 37.2 C 11/02/24 19:04 Pulse Rate 94 11/02/24 19:04 Respiratory Rate 18 11/02/24 19:04 Blood Pressure 124/70 11/02/24 19:04 Pulse Oximetry 100 11/02/24 19:04 Oxygen Delivery Room Air 11/02/24 19:04 reviewed Critical Care Time Critical Care Time Critical Care Time: No Discharge Plan Discharge Clinical Impression: Nausea alone Patient Disposition: Home, Self-Care Condition: Stable Instructions: Antibiotic Form Additional Instructions: CLEAR LIQUIDS FOR THE NEXT 8-10 HOURS, THEN ADVANCE TO A BLAND DIET TOLERATED A BLAND DIET CAN CONSIST OF--BRAT DIET WHICH IS BANANAS, RICE, APPLESAUCE, AND TOAST AVOID FRIED, GREASY, FATTY, FRIED FOODS AVOID CAFFEINE, NICOTINE, AND ALCOHOL Tylenol only for any headache or pain SOMETIMES IBUPROFEN/ALEVE CAN CAUSE INCREASED STOMACH UPSET FOLLOW-UP WITH HER PCP IF CONTINUED PROBLEMS OR UNCONTROLLED PAIN May return to work tomorrow as long as no nausea and vomiting further today Patient Language: Yi Prescriptions: No Action No Home Medications Follow-up/Referrals: PHYSICIAN,PLASTERER [facility] GUN [Primary Care Provider] - Stand Alone Forms: Work/School Release IP Time of Disposition: 20:49 Quality [place] Coma Scale Eyes: Open Verbal: Oriented and Alert Motor: Follows Commands [place] Coma Total Score: 15
== END 2024-11-02 20:53 | disposition home or self-care (01) ==
PROVIDERS: Emergency Provider Registered Nurse
DX: R11.0 Nausea (principal)
CPT/HCPCS: 99211; G0463